=== PATIENT | female | born 1975 | race Hispanic/Latino ===

== ENCOUNTER 2022-11-16 13:41 | Emergency (ER) | payer MEDICAID ==
[~2022-11-16] VITALS: Ht 157.5 cm; Wt 79.4 kg
[2022-11-16 14:50] VITALS: BP 110/59; PULSE 70; RESP 16; O2SAT 99
[2022-11-16] MEDS ORDERED: IBUPROFEN 600 MG TABLET PO ONE (15:00)
[2022-11-16 19:47] LABS: ADD UA MICROSCOPIC YES; APPEARANCE,URINE CLEAR (CLEAR); BILIRUBIN,URINE NEGATIVE (NEGATIVE); COLOR,URINE LIGHT-YELLOW (YELLOW); GLUCOSE, URINE (UA) NEGATIVE (NEGATIVE); KETONES,URINE NEGATIVE (NEGATIVE); LEUKOCYTE ESTERASE ,URINE NEGATIVE Leu/uL (NEGATIVE); NITRATE,URINE NEGATIVE (NEGATIVE); OCCULT BLOOD,URINE NEGATIVE (NEGATIVE); PROTEIN,URINE NEGATIVE (NEGATIVE); UROBILINOGEN,URINE 0.2 mg/dL (0.2-1.0)
[2022-11-16] MEDS ORDERED: IBUPROFEN 600 MG TABLET PO SCH (19:47)
[2022-11-16 19:52] LABS: BACTERIA,URINE RARE /HPF (None Seen); MUCUS,URINE RARE LPF (None Seen); RBC,URINE 0-1 /HPF (0-1); SQUAMOUS EPITHELIAL CELL,UR MOD /HPF (0-2)
[2022-11-16 19:53] LABS: HCG,QUALITATIVE URINE NEGATIVE (NEGATIVE)
[2022-11-16] MEDS ORDERED: ACET-2079 PO (21:36)
== END 2022-11-16 21:43 | disposition home or self-care (01) ==
LOC: EDH 13:41
DX: S32.10XA Unspecified fracture of sacrum, initial encounter for closed fracture (principal); W18.39XA Other fall on same level, initial encounter; Y93.89 Activity, other specified; Y92.89 Other specified places as the place of occurrence of the external cause; Y99.8 Other external cause status
CPT/HCPCS: 72131; 81001; 81025

== ENCOUNTER 2023-01-31 20:57 | Emergency (ER) | payer MEDICAID ==
[~2023-01-31] VITALS: Ht 157.5 cm; Wt 78.0 kg
[~2023-01-31 20:57] MED LIST: ACET-2079 PO
[2023-01-31 21:19] VITALS: BP 144/88; PULSE 71; RESP 18
== END 2023-01-31 21:45 ==
LOC: EDH 20:57
DX: Z02.79 Encounter for issue of other medical certificate (principal); Z53.21 Procedure and treatment not carried out due to patient leaving prior to being seen by health care provider
CPT/HCPCS: 99281